=== PATIENT | male | born 1965 | race Caucasian/White ===

== ENCOUNTER → 2018-06-26 12:45 | Outpatient (CLI) | payer OTHER, SELFPAY ==
--- NOTE | 2018-06-26 12:47 | CT_ITS ---
STUDY: CT ABDOMEN AND PELVIS WITH CONTRAST REASON FOR EXAM: Male, 52 years old. Nausea, epigastric discomfort, history of testicular cancer RADIATION DOSAGE (If Supplied By Facility): CTDIvol = ( 20.01 ) mGy, DLP = ( 1372.27 ) mGycm TECHNIQUE: Transaxial images were obtained from the dome of the diaphragm to the symphysis pubis with oral contrast. 100 ml of Isovue 300 contrast was administered. Sagittal and coronal images were reconstructed. Individualized dose optimization techniques were used for this CT. COMPARISON: None. FINDINGS: The visualized lung bases are unremarkable. The visualized portions of the heart are within normal limits. There is decreased attenuation of the liver consistent with steatosis. Hepatomegaly. Cholelithiasis. Normal spleen. Normal pancreas. Normal bilateral adrenal glands. Normal right kidney. Normal left kidney. Normal visualized stomach. Normal small intestine. There are multiple colonic diverticula consistent with diverticulosis. The appendix is visualized and appears normal. Normal abdominal aorta. Normal inferior vena cava. Normal retroperitoneum. Normal urinary bladder. Right orchiectomy. Normal abdominal wall. Bilateral pars interarticularis defects are present at the L5-S1 level with grade 1 anterolisthesis and severe bilateral foraminal stenoses. CT/Abdomen/Pelvis WITH Contrast IMPRESSION: Cholelithiasis. Hepatomegaly and fatty liver. No masses or adenopathy. No evidence of acute intestinal pathology or acute obstructive uropathy. Electronically Signed: Parag Robbins MD at 1:18 EDT Tel , Service support ,
[2018-06-26 13:01] LABS: CREATININE FINGERSTICK 1.1 mg/dL (0.70-1.30); EGFR FINGERSTICK > 60.0000 mL/min (>60)
== END ==
PROVIDERS: Family Provider Family Medicine; PCP Family Medicine; Referring Provider Surgery; Visit Provider Surgery
DX: R68.81 Early satiety (principal); R11.0 Nausea
CPT/HCPCS: 74177; Q9967

== ENCOUNTER → 2018-06-30 10:08 | Outpatient (CLI) | payer OTHER, SELFPAY ==
[2018-06-30 10:51] LABS: AST(SGOT) 55 U/L (15-37); Alanine Aminotransfer ALT/SGPT 98 U/L (16-61); Albumin, Serum 4.2 g/dL (3.2-5.0); Alkaline Phosphatase 41 U/L (45-117); Bilirubin, Direct 0.11 mg/dL (0.00-0.30); Globulin 3.7 g/dL (2.2-4.2); Lipase 156 U/L (73-393); Protein, Total 7.9 g/dL (6.4-8.2)
== END ==
PROVIDERS: Family Provider Family Medicine; PCP Family Medicine; Referring Provider Surgery; Visit Provider Surgery
DX: K80.20 Calculus of gallbladder without cholecystitis without obstruction (principal); R11.0 Nausea; K76.0 Fatty (change of) liver, not elsewhere classified
CPT/HCPCS: 36415; 80076; 83690

== ENCOUNTER 2018-07-08 09:23 | Day surgery (SDC) | payer OTHER, SELFPAY ==
--- NOTE | 2018-07-08 | GASB_PTH ---
PATIENT: ANDRZEJ HSIEH LOC: EN U#:[id number] AGE/SX: 52/M ROOM: RE07/08/[address]: Dr. Yenny Stewart MD : 1965 BED: DIS: 07/08/2018 SPEC #: [id number] RECD: 07/08/18 14:53 STATUS: FELI REStacia #: [id number] JAILYN: 07/08/18 00:[address]: Yenny Stewart DEPT: SURGICAL PATHOLOGY RECD BY: Tyrone Kinney ENTERED: 07/08/18 14:54 SP TYPE: Gastric Bx OTHR DR: Dr. Puma Shi MD Tissues: A - Gastric mucous membrane B - Gastric mucous membrane C - Ascending colon D - Transverse colon E - Rectum, NOS Procedures: Surgery Specimen Level IV HEADER OPERATION: [place] [place] DIAGNOSIS: Nausea, fullness after eating, screening TISSUE SUBMITTED: A. Antral biopsy for H. Pylori, B. GE junction biopsy, C. Ascending colon polyp, D. Proximal transverse polyp biopsy, E. Rectal polyp MICROSCOPIC DIAGNOSIS A. Gastric antrum, biopsy: Mild chronic gastritis. B. Gastroesophageal junction, biopsy: Focal changes of reflux. Junctional mucosa with chronic inflammation. C. Ascending colon polyp, biopsy: Fragments of tubulovillous adenoma. D. Proximal transverse colon polyp, biopsy: Polypoid colonic mucosa with inflammatory change. E. Rectal polyp, biopsy: Inflammatory polyp. AM:sheridan 07/09/18 MICROSCOPIC DESCRIPTION Slides are reviewed. GROSS DESCRIPTION A. Received is one container labeled with the patient name and designated antral biopsy. The specimen consists of one irregular fragment of light rowell soft tissue that measures 0.3 x 0.2 x 0.1 cm. The specimen is totally submitted in one cassette. B. Received is one container labeled with the patient name and designated GE junction biopsy. The specimen consists of multiple irregular fragments of light rowell soft tissue that in aggregate measure 1 x 0.3 x 0.1 cm. The specimen is totally submitted in one cassette. C. Received in fixative is one container labeled with the patient's name and designated ascending colon polyp. The specimen consists of a pink-red polyp measuring 1 x 0.5 x 0.5 cm. The apparent base is inked. The polyp is bisected and submitted entirely in one cassette. D. Received is one container labeled with the patient name and designated proximal transverse polyp biopsy. The specimen consists of multiple irregular fragments mixed with fecal material that in aggregate measure 2 x 0.3 x 0.1 cm. The specimen is totally submitted in one cassette. E. Received in fixative is one container labeled with the patient's name and designated rectal polyp. The specimen consists of a pink-red polyp measuring 1 x 1.2 x 1 cm. The apparent base is inked. The specimen is serially sectioned and submitted entirely in one cassette./ NAREN:sheridan 07/08/18 TC: 5 CPT: 37107r9
--- NOTE | 2018-07-08 | IMM_PTH ---
PATIENT: ANDRZEJ HSIEH LOC: EN U#:[id number] AGE/SX: 52/M ROOM: RE07/08/[address]: Dr. Yenny Stewart MD : 1965 BED: DIS: 07/08/2018 SPEC #: [id number] RECD: 07/09/18 09:14 STATUS: FELI REStacia #: [id number] JAILYN: 07/08/18 00:[address]: Yenny Stewart DEPT: IMMUNOHISTOCHEMISTRY RECD BY: Jensen Leyva ENTERED: 07/09/18 09:14 SP TYPE: IMMUNO OTHR DR: Dr. Puma Shi MD Tissues: Gastric mucous membrane Procedures: H Pylori (initial) PHYSICIAN & INSTITUTION [place] [address] SPECIMEN INFORMATION: Tissue Source: A. Antral biopsy Clinical Info: Nausea, fullness after eating, screening Specimen Number: [id number] CPT code: 04300 METHODOLOGY: Deparaffinized sections of prefer/formalin-fixed tissue or PAP/DQ stained slides are incubated with monoclonal/polyclonal antibodies/oligonucleotide probes. Localization is made via biotin free immunoperoxidase method. Appropriate controls are performed and reacted as expected. Results on target cell population are indicated in the following table: RESULTS: ANTIBODY / CLONE RESULT H Pylori (polyclonal) negative These tests were developed and their performance characteristics determined by [facility]. They may not have been cleared or approved by the [place].S. Food and Drug Administration. The FDA has determined that such clearance or approval is not necessary. INTERPRETATION: Antral biopsy: Negative for Helicobacter pylori. AM:bladimir 07/09/18
[2018-07-08 09:38] VITALS: BP 156/96; PULSE 61; RESP 14; TEMP 36.7; O2SAT 96; BMI 31.5
[2018-07-08 12:20] VITALS: BP 120/74; BP 156/96; PULSE 55; RESP 16; TEMP 36.3; O2SAT 96
--- NOTE | 2018-07-08 12:20 | OP.ENDO_ITS ---
Patient Name: Michael Caballero Procedure Date: 07/08/2018 11:06 AM Date of : 1965 Age: 52 Procedure: Upper GI endoscopy Indications: Epigastric abdominal pain, Early satiety Providers: Yenny Stewart MD Medicines: Monitored Anesthesia Care Patient Profile: This is a 52 year old male. Complications: No immediate complications. Procedure: Pre-Anesthesia Assessment: - Prior to the procedure, a History and Physical was performed, and patient medications and allergies were reviewed. The patient's tolerance of previous anesthesia was also reviewed. The risks and benefits of the procedure and the sedation options and risks were discussed with the patient. All questions were answered, and informed consent was obtained. Prior Anticoagulants: The patient has taken no previous anticoagulant or antiplatelet agents. ASA Grade Assessment: II - A patient with mild systemic disease. After reviewing the risks and benefits, the patient was deemed in satisfactory condition to undergo the procedure. After obtaining informed consent, the endoscope was passed under direct vision. Throughout the procedure, the patient's blood pressure, pulse, and oxygen saturations were monitored continuously. The gastroscope was introduced through the mouth, and advanced to the second part of duodenum. The upper GI endoscopy was accomplished without difficulty. The patient tolerated the procedure well. Scope In: 11:29:33 AM Scope Out: 11:36:20 AM Total Procedure Duration Time 0 hours 6 minutes 47 seconds Findings: The in the esophagus was normal. Scattered moderate inflammation characterized by erythema was found in the gastric antrum. Biopsies were taken with a cold forceps for histology and Helicobacter pylori testing. Mild mucosal changes characterized by erythema were found at the gastroesophageal junction. Biopsies were taken with a cold forceps for histology. The examined duodenum was normal. Impression: - Normal. - Gastritis. Biopsied. - Erythematous mucosa in the gastroesophageal junction. Biopsied. - Normal examined duodenum. Recommendation: - Discharge patient to home. - Use Protonix (pantoprazole) 40 mg PO daily. - Await pathology results. - Continue present medications. Procedure Code(s): --- Professional --- 10071, Esophagogastroduodenoscopy, flexible, transoral; with biopsy, single or multiple Diagnosis Code(s): --- Professional --- K29.70, Gastritis, unspecified, without bleeding K31.89, Other diseases of stomach and duodenum R10.13, Epigastric pain R68.81, Early satiety CPT copyright 2017 [employer]. All rights reserved. The codes documented in this report are preliminary and upon postie review may be revised to meet current compliance requirements. MD Yenny Torres MD 07/08/2018 12:19:07 PM This report has been signed electronically. Number of Addenda: 0 Note Initiated On: 07/08/2018 11:06 AM
[2018-07-08 12:25] VITALS: BP 133/84; BP 156/96; PULSE 55; RESP 16; O2SAT 97
--- NOTE | 2018-07-08 12:25 | OP.ENDO_ITS ---
Patient Name: Michael Caballero Procedure Date: 07/08/2018 11:38 AM Date of : 1965 Age: 52 Procedure: Colonoscopy Indications: Screening for colorectal malignant neoplasm Providers: Yenny Stewart MD Medicines: Monitored Anesthesia Care Patient Profile: This is a 52 year old male. Last Colonoscopy: none. The patient's first colonoscopy is today. Complications: No immediate complications. Procedure: Pre-Anesthesia Assessment: - Prior to the procedure, a History and Physical was performed, and patient medications and allergies were reviewed. The patient's tolerance of previous anesthesia was also reviewed. The risks and benefits of the procedure and the sedation options and risks were discussed with the patient. All questions were answered, and informed consent was obtained. Prior Anticoagulants: The patient has taken no previous anticoagulant or antiplatelet agents. ASA Grade Assessment: II - A patient with mild systemic disease. After reviewing the risks and benefits, the patient was deemed in satisfactory condition to undergo the procedure. After I obtained informed consent, the scope was passed under direct vision. Throughout the procedure, the patient's blood pressure, pulse, and oxygen saturations were monitored continuously. The Colonoscope was introduced through the anus and advanced to the cecum, identified by the appendiceal orifice, ileocecal valve and palpation. The colonoscopy was performed without difficulty. The patient tolerated the procedure well. The quality of the bowel preparation was good. Scope In: 11:39:22 AM Scope Withdrawal Time 0 hours 30 minutes 46 seconds Scope Out: 12:13:53 PM Total Procedure Duration Time 0 hours 34 minutes 31 seconds Findings: Two pedunculated polyps were found in the rectum and ascending colon. The polyps were 12 to 15 mm in size. These polyps were removed with a hot snare. Resection and retrieval were complete. A less than 5 mm polyp was found in the proximal transverse colon. The polyp was sessile. The polyp was removed with a cold biopsy forceps. Resection and retrieval were complete. The retroflexed view of the distal rectum and anal verge was normal and showed no anal or rectal abnormalities. Impression: - Two 12 to 15 mm polyps in the rectum and in the ascending colon, removed with a hot snare. Resected and retrieved. - One less than 5 mm polyp in the proximal transverse colon, removed with a cold biopsy forceps. Resected and retrieved. - The distal rectum and anal verge are normal on retroflexion view. Recommendation: - Discharge patient to home. - Await pathology results. - Repeat colonoscopy 2-3 years for surveillance based on pathology results. - Continue present medications. Procedure Code(s): --- Professional --- 04340, Colonoscopy, flexible; with removal of tumor(s), polyp(s), or other lesion(s) by snare technique 47201, 59, Colonoscopy, flexible; with biopsy, single or multiple Diagnosis Code(s): --- Professional --- Z12.11, Encounter for screening for malignant neoplasm of colon K62.1, Rectal polyp D12.2, Benign neoplasm of ascending colon D12.3, Benign neoplasm of transverse colon (hepatic flexure or splenic flexure) CPT copyright 2017 [employer]. All rights reserved. The codes documented in this report are preliminary and upon paper tube machine operator review may be revised to meet current compliance requirements. MD Yenny Torres MD 07/08/2018 12:24:56 PM This report has been signed electronically. Number of Addenda: 0 Note Initiated On: 07/08/2018 11:38 AM
[2018-07-08 12:30] VITALS: BP 125/74; BP 156/96; PULSE 53; RESP 16; O2SAT 98
[2018-07-08 12:40] VITALS: BP 131/64; BP 156/96; PULSE 56; RESP 16; TEMP 36.3; O2SAT 97
[2018-07-08 13:18] VITALS: BP 156/96
== END 2018-07-08 13:20 | disposition home or self-care (01) ==
LOC: EN 09:23 → AC 09:24
PROVIDERS: Family Provider Family Medicine; PCP Family Medicine; Referring Provider Surgery; Visit Provider Surgery
PROC: 0DJD8ZZ Inspection of Lower Intestinal Tract, Via Natural or Artificial Opening Endoscopic (ICD-10-PCS; CPT 45378; principal; 2018-07-08 10:55)
DX: Z12.11 Encounter for screening for malignant neoplasm of colon (principal); K29.50 Unspecified chronic gastritis without bleeding; K62.1 Rectal polyp; D12.3 Benign neoplasm of transverse colon; D12.2 Benign neoplasm of ascending colon; K31.89 Other diseases of stomach and duodenum; R68.81 Early satiety; R10.13 Epigastric pain; I10 Essential (primary) hypertension
CPT/HCPCS: 43239; 45380; 45385; 88305; 88342; J7120; J1610